=== PATIENT | female | born 1960 | race Caucasian/White ===

== ENCOUNTER → 2017-07-12 | Outpatient (CLI) | payer BC ==
--- NOTE | 2017-07-15 09:06 | MM ---
Reason for exam: screening (asymptomatic). Last mammogram was performed 1 year ago. History: Family history of breast cancer in sister at age 54. U/S Discnt Right Core Biopsy of both breasts, January 12, 2013. Excisional biopsy of the right breast, December 13, 2006. Took hormonal contraceptives for 10 years. Physical Findings: A clinical breast exam by your physician is recommended on an annual basis and results should be correlated with mammographic findings. MG 3D Screening Mammo W/Cad Bilateral CC and MLO view(s) were taken. Prior study comparison: July 24, 2016, bilateral MG screening mammo w CAD. March 09, 2015, bilateral MG screening mammo w CAD. The breast tissue is extremely dense which could obscure a lesion on mammography. There is no discrete abnormality. No significant changes when compared with prior studies. ASSESSMENT: Negative, BI-RAD 1 RECOMMENDATION: Routine screening mammogram of both breasts in 1 year.
== END ==
LOC: RADMAMWWP 15:15
PROVIDERS: ATTEND Obstetrics & Gynecology
DX: Z12.31 Encounter for screening mammogram for malignant neoplasm of breast (principal)
CPT/HCPCS: 77063; G0202

== ENCOUNTER → 2018-08-29 | Outpatient (CLI) | payer OTHER ==
[2018-08-29 12:36] LABS: HCT 48.3 % (34.0-46.0); HGB 15.9 gm/dL (11.4-16.0); MCH 30.9 pg (25.0-35.0); MCV 93.6 fL (80.0-100.0); Mean Platelet Volume 6.3; Platelet Count 304 k/uL (150-450); RBC 5.16 m/uL (3.80-5.40); RDW 13.7 % (11.5-15.5); WBC 10.9 k/uL (3.8-10.6)
[2018-08-29 14:37] LABS: Neutrophils # (M) 3.92 k/uL (1.3-7.7); Neutrophils % (M) 36 %
[2018-08-29 14:38] LABS: Eosinophils # (M) 0.22 k/uL (0-0.7); Monocytes # (M) 0.65 k/uL (0-1.0); Nucleated Red Blood Cells 0 /100 WBC (0-0); Total Cells Counted 100
[2018-08-29 18:07] LABS: Iron Saturation 19.15 (12.00-45.00)
== END | disposition home or self-care (01) ==
LOC: LABWHC1 11:06
PROVIDERS: ATTEND Family Medicine
DX: R71.8 Other abnormality of red blood cells (principal)
CPT/HCPCS: 36415; 82728; 83540; 83550; 85025

== ENCOUNTER → 2018-09-15 | Outpatient (CLI) | payer OTHER ==
--- NOTE | 2018-09-15 08:52 | MM ---
Reason for exam: clinical finding. Last mammogram was performed 1 year and 2 months ago. History: Patient is postmenopausal. Family history of breast cancer in sister at age 54. U/S Discnt Right Core Biopsy of both breasts, January 12, 2013. Excisional biopsy of the right breast, December 13, 2006. Took hormonal contraceptives for 10 years. Physical Findings: Nurse did not find any significant physical abnormalities on exam. MG Diagnostic Mammo w CAD JAM Bilateral CC and MLO view(s) were taken. Prior study comparison: July 12, 2017, bilateral MG 3d screening mammo w/cad. July 24, 2016, bilateral MG screening mammo w CAD. The breast tissue is extremely dense which could obscure a lesion on mammography. No significant new findings when compared with previous films. These results were verbally communicated with the patient and result sheet given to the patient on 09/15/18. ASSESSMENT: Incomplete: need additional imaging evaluation, BI-RAD 0 RECOMMENDATION: Ultrasound of the left breast. (for milky/clear/bloody discharge)
--- NOTE | 2018-09-15 08:55 | USB ---
Reason for exam: additional evaluation requested from abnormal screening. History: Patient is postmenopausal. Family history of breast cancer in sister at age 54. U/S Discnt Right Core Biopsy of both breasts, January 12, 2013. Excisional biopsy of the right breast, December 13, 2006. Took hormonal contraceptives for 10 years. US Breast LT Left complete breast ultrasound includes all four quadrants, the retroareolar region and axilla. Finding demonstrates a 3 x 2 x 4mm oval, cystic, benign lesion at 6 o'clock. No other solid or cystic lesion is seen. These results were verbally communicated with the patient and result sheet given to the patient on 09/15/18. ASSESSMENT: Benign, BI-RAD 2 RECOMMENDATION: Routine screening mammogram of both breasts in 1 year. Manage patient on a clinical basis. Clinical surveillance recommended for left nipple discharge. Suspicious discharge that can be further evaluated includes clear/bloody spontaneous discharge localized to a single pore on the nipple.
== END | disposition home or self-care (01) ==
LOC: RADMAMWWP 07:28
PROVIDERS: ATTEND Family Medicine
DX: N61.1 Abscess of the breast and nipple (principal); N64.59 Other signs and symptoms in breast; D72.820 Lymphocytosis (symptomatic); R92.8 Other abnormal and inconclusive findings on diagnostic imaging of breast
CPT/HCPCS: 36415; 77066

== ENCOUNTER → 2019-08-21 | Outpatient (CLI) | payer OTHER ==
[2019-08-21 09:18] LABS: Basophils % (A) 0 %; Eosinophils # (A) 0.1 k/uL (0-0.7); Eosinophils % (A) 1 %; HCT 46.8 % (34.0-46.0); HGB 15.9 gm/dL (11.4-16.0); Lymphocytes # (A) 6.1 k/uL (1.0-4.8); Lymphocytes % (A) 52 %; MCH 31.7 pg (25.0-35.0); Mean Platelet Volume 6.4; Monocytes # (A) 0.5 k/uL (0-1.0); Monocytes % (A) 4 %; Neutrophils # (A) 4.7 k/uL (1.3-7.7); Neutrophils % (A) 40 %; Platelet Count 324 k/uL (150-450); RBC 5.03 m/uL (3.80-5.40); RDW 13.2 % (11.5-15.5); WBC 11.7 k/uL (3.8-10.6)
[2019-08-21 18:40] LABS: African American GFR (CKD) 95.5 (60.0-200.0); Albumin 4.8 g/dL (3.80-4.90); Albumin/Globulin Ratio 2.29 (1.60-3.17); Anion Gap 8.2 mmol/L (4.00-12.00); Calcium 9.7 mg/dL (8.7-10.3); Carbon Dioxide 25.8 mmol/L (21.6-31.8); Chol/HDL Ratio 3.09; Globulin 2.1 g/dL (1.6-3.3); LDL Cholesterol,Calculated 126.2 mg/dL (0.0-131.0); Non-African American GFR(CKD) 82.4 (60.0-200.0); Potassium 4.1 mmol/L (3.5-5.5); Total Bilirubin 0.5 mg/dL (0.2-1.2); Total Protein 6.9 g/dL (6.2-8.2); VLDL Calculation 15.8 mg/dL (5.00-40.00)
== END | disposition home or self-care (01) ==
LOC: LABWHC1 08:19
PROVIDERS: ATTEND Family Medicine
DX: Z00.00 Encounter for general adult medical examination without abnormal findings (principal)
CPT/HCPCS: 36415; 80053; 80061; 82306; 85025

== ENCOUNTER → 2019-09-22 | Outpatient (CLI) | payer OTHER ==
[2019-09-22 09:00] VITALS: BP 145/77; PULSE 100; RESP 18; TEMP 98.1
--- NOTE | 2019-09-22 09:39 | P.HPOB ---
History of Present Illness H&P Date: 09/22/19 Chief Complaint: The patient is here for her routine gynecologic exam and ma mmogram. This is a 59-year-old with an LMP of 2007. The patient has been amenorrheic since her endometrial ablation in 2007. She is status post tubal ligation. She is here to establish with this office. Her last pelvic exam was about 2 years ago. She does have some hot flashes and night sweats and she has used happy PMS cream for this for a number of years which she states helps with the symptoms. She is otherwise without complaints. Review of Systems The patient's weight has been stable over the last year. She denies respiratory, cardiac, or G.I. problems. 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 She has no other history of STDs. History of Any Multi-Drug Resistant Organisms: None Reported Past Surgical History: Tubal Ligation, Uterine Ablation Additional Past Surgical History / Comment(s): uterine ablation, (R) breast surgery, dental surgery Past Psychological History: No Psychological Hx Reported Smoking Status: Current every day smoker (One pack per day) Past Alcohol Use History: Occasional (Up to 6 per month.) Past Drug Use History: None Reported Additional History: She is and is not seeing anybody at this time. 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 - Past Family History Father Family Medical History: Cancer, Coronary Artery Disease (CAD) Additional Family Medical History / Comment(s): Neck cancer. Mother Family Medical History: CVA/TIA Medications and Allergies Home Medications Medication Instructions Recorded Confirmed Type Happy Pms Cream 1 applic TOPICAL DAILY 06/19/16 09/22/19 History Cholecalciferol [Vitamin D3 (25 1,000 unit PO DAILY 09/22/19 09/22/19 History Mcg = 1000 Iu)] Multivit/Folic Acid/Vit K1 1 each PO DAILY 09/22/19 09/22/19 History [One-A-Day Women's 50 Plus Tab] Allergies Allergy/AdvReac Type Severity Reaction Status Date / Time tetracycline Allergy Unknown Verified 09/22/19 09:00 Exam Vital Signs Temp Pulse Resp BP Pulse Ox 09/22/19 08:57 98.1 F 100 18 145/77 96 Intake and Output 09/21/19 09/22/19 09/22/19 22:59 06:59 14:59 Other: Weight 64.41 kg Height 5 feet 7 inches, weight 142 pounds, BMI 22.2. This is a well-developed well-nourished white female who is alert and oriented times 3 in no acute distress. HEENT: Within normal limits. NECK: Supple without mass or thyromegaly. CHEST AND LUNGS: Clear to auscultation. HEART: Regular rate and rhythm. BREASTS: Are without mass or discharge. The left nipple has central inversion and the patient states this has been this way for many years. The right nipple is not inverted. AXILLARY EXAM: Negative for adenopathy. BACK: Negative for CVA tenderness. ABDOMEN: Soft, nontender, without palpable masses. PELVIC EXAM: Normal external genitalia with mild atrophy. Cervix and vagina appear normal with mild atrophy. There is no unusual discharge. There is no evidence of prolapse. The uterus is midposition, nongravid size and nontender. There are no palpable adnexal masses or tenderness. RECTAL EXAM: Rectovaginal exam is negative for mass or tenderness and is negative for occult blood. EXTREMITIES: Nontender. IMPRESSION: 1. 59-year-old menopausal female with normal gynecologic exam. 2. Mildly elevated blood pressure. PLAN: 1. Pap smear was performed. 2. Self breast awareness was discussed with the patient. 3. Screening mammogram will be done today. 4. We have discussed her elevated blood pressure. I have recommended that she check her own blood pressure on a regular basis. She is to follow up with her PCP for blood pressure elevations. 5. Osteoporosis prevention was discussed. I have stressed the importance of adequate calcium, vitamin D and regular exercise. Recommended amounts of calciu m and vitamin D were also discussed. We will plan on doing a bone density test in 1 year. 6. We discussed screening colonoscopy. She states she is planning to do cologuard testing through her PCP as an alternative to the colonoscopy. 7. STD prevention was discussed with the patient. I have stressed the importance of limiting sexual partners and I have recommended that she use condoms if she is sexually active. 8. She was advised to return in one year for her annual well woman exam.
--- NOTE | 2019-09-23 08:14 | MM ---
Reason for exam: screening (asymptomatic). Last mammogram was performed 1 year ago. History: Patient is postmenopausal. Family history of breast cancer in sister at age 54. U/S Discnt Right Core Biopsy of both breasts, January 12, 2013. Excisional biopsy of the right breast, December 13, 2006. Took hormonal contraceptives for 10 years beginning at age 18. Physical Findings: A clinical breast exam by your physician is recommended on an annual basis and results should be correlated with mammographic findings. MG Screening Mammo w CAD Bilateral CC and MLO view(s) were taken. Prior study comparison: September 15, 2018, bilateral MG diagnostic mammo w CAD JAM. July 12, 2017, bilateral MG 3d screening mammo w/cad. The breast tissue is extremely dense which could obscure a lesion on mammography. Stable benign calcifications. There is no discrete abnormality. No significant changes when compared with prior studies. ASSESSMENT: Benign, BI-RAD 2 RECOMMENDATION: Routine screening mammogram of both breasts in 1 year.
== END | disposition home or self-care (01) ==
LOC: WWCWWP 08:47
PROVIDERS: ATTEND Obstetrics & Gynecology
DX: Z12.31 Encounter for screening mammogram for malignant neoplasm of breast (principal)
CPT/HCPCS: 77067

== ENCOUNTER → 2020-11-14 | Outpatient (CLI) | payer OTHER ==
[2020-11-14 14:53] LABS: HCT 49.2 % (37.2-46.3); HGB 16.2 g/dL (12.0-15.0); MCH 30.5 pg (27.0-32.0); MCHC 32.9 g/dL (32.0-37.0); MCV 92.7 fL (80.0-97.0); Platelet Count 316 X 10*3/uL (140-440); RBC 5.31 X 10*6/uL (4.10-5.20); RDW 13.5 % (11.5-14.5); WBC 12.73 X 10*3/uL (4.50-10.00)
[2020-11-14 16:04] LABS: Basophils # (M) 0 X 10*3/uL (0.00-0.10); Eosinophils # (M) 0.13 X 10*3/uL (0.04-0.35); Monocytes # (M) 0.64 X 10*3/uL (0.20-1.00); Neutrophils # (M) 2.16 X 10*3/uL (2.00-8.90); Neutrophils % (M) 17 %; Smudge Cells PRESENT
[2020-11-14 16:07] LABS: African American GFR (CKD) 94.2 (60.0-200.0); Albumin 4.9 g/dL (3.80-4.90); Albumin/Globulin Ratio 2.23 (1.60-3.17); Anion Gap 10.1 mmol/L (4.00-12.00); BUN/Creat Ratio 12.5 Ratio (12.00-20.00); Calcium 9.8 mg/dL (8.7-10.3); Carbon Dioxide 23.9 mmol/L (21.6-31.8); Chol/HDL Ratio 3.98; Globulin 2.2 g/dL (1.6-3.3); LDL Cholesterol,Calculated 148.4 mg/dL (0.0-131.0); Non-African American GFR(CKD) 81.3 (60.0-200.0); Potassium 4.2 mmol/L (3.5-5.5); Total Bilirubin 0.6 mg/dL (0.2-1.2); Total Protein 7.1 g/dL (6.2-8.2); VLDL Calculation 21.6 mg/dL (5.00-40.00)
== END | disposition home or self-care (01) ==
LOC: LABWHC1 08:17
PROVIDERS: ATTEND Family Medicine
DX: Z00.00 Encounter for general adult medical examination without abnormal findings (principal); Z12.11 Encounter for screening for malignant neoplasm of colon; J44.9 Chronic obstructive pulmonary disease, unspecified; R71.8 Other abnormality of red blood cells
CPT/HCPCS: 36415; 80053; 80061; 84443; 85025

== ENCOUNTER → 2020-12-13 | Outpatient (CLI) | payer OTHER ==
[2020-12-13 14:16] VITALS: BP 132/79; PULSE 78; RESP 18; TEMP 97.9
--- NOTE | 2020-12-13 14:51 | P.HPOB ---
History of Present Illness H&P Date: 12/13/20 Chief Complaint: The patient is here for her routine gynecologic exam and ma mmogram. This is a 60-year-old with an LMP of 2007. The patient is without gynecologic complaints and denies any postmenopausal bleeding. Review of Systems The patient has lost 9 pounds over the last year. She denies respiratory, cardiac, or G.I. problems. 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 She has no other history of STDs. History of Any Multi-Drug Resistant Organisms: None Reported Past Surgical History: Tubal Ligation, Uterine Ablation Additional Past Surgical History / Comment(s): uterine ablation 2007, (R) breast surgery, dental surgery Past Psychological History: No Psychological Hx Reported Smoking Status: Current every day smoker (1 pack per day) Past Alcohol Use History: Rare Past Drug Use History: None Reported Additional History: She is . 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 - Past Family History Father Family Medical History: Cancer, Coronary Artery Disease (CAD) Additional Family Medical History / Comment(s): Neck cancer. Mother Family Medical History: CVA/TIA Medications and Allergies Home Medications Medication Instructions Recorded Confirmed Type Happy Pms Cream 1 applic TOPICAL DAILY 06/19/16 12/13/20 History Cholecalciferol [Vitamin D3 (25 1,000 unit PO DAILY 09/22/19 12/13/20 History Mcg = 1000 Iu)] Multivit/Folic Acid/Vit K1 1 each PO DAILY 09/22/19 12/13/20 History [One-A-Day Women's 50 Plus Tab] Cetirizine HCl [Zyrtec] 5 mg PO DAILY 12/13/20 12/13/20 History Allergies Allergy/AdvReac Type Severity Reaction Status Date / Time tetracycline Allergy Unknown Verified 12/13/20 14:11 Exam Vital Signs Temp Pulse Resp BP Pulse Ox 12/13/20 14:12 97.9 F 78 18 132/79 97 Intake and Output 12/12/20 12/13/20 12/13/20 22:59 06:59 14:59 Other: Weight 60.328 kg Height 5 feet 6 inches, weight 133 pounds, BMI 21.5. This is a well-developed well-nourished white female who is alert and oriented times 3 in no acute distress. HEENT: Within normal limits. NECK: Supple without mass or thyromegaly. CHEST AND LUNGS: Clear to auscultation. HEART: Regular rate and rhythm. BREASTS: Are without mass or discharge. There is left breast nipple inversion which the patient states she has had this "forever". She states she can express a small amount of nonbloody fluid from this side and this is also been for many years. She denies any spontaneous nipple discharge. AXILLARY EXAM: Negative for adenopathy. BACK: Negative for CVA tenderness. ABDOMEN: Soft, nontender, without palpable masses. PELVIC EXAM: Normal external genitalia with mild atrophy. Cervix and vagina appear normal with mild atrophy. There is no unusual discharge. There is no evidence of prolapse. The uterus is midposition, nongravid size and nontender. There are no palpable adnexal masses or tenderness. RECTAL EXAM: Rectovaginal exam is negative for mass or tenderness and is negative for occult blood. EXTREMITIES: Nontender. IMPRESSION: 1. 60-year-old menopausal female with normal gynecologic exam. 2. Smoker PLAN: 1. Pap smear was deferred since she had a normal one on 09/22/2019. 2. Self breast awareness was discussed with the patient. 3. Screening mammogram will be done today. 4. Osteoporosis prevention was discussed. I have stressed the importance of adequate calcium, vitamin D and regular exercise. Recommended amounts of calcium and vitamin D were also discussed. 5. I have strongly recommended that she quit smoking. She understands that there are many reasons why it is important to quit smoking. She states she has never been able to quit with any medical assistance and she will do it on her own when she is ready. 6. I have recommended colorectal cancer screening. We have discussed c olonoscopies and other options such as Cologuard. She wants to avoid having a colonoscopy and plans on doing the Cologuard through her PCP. 7. She was advised to return in one year for her annual well woman exam.
--- NOTE | 2020-12-15 14:17 | MM ---
Reason for exam: screening (asymptomatic). Last mammogram was performed 1 year and 3 months ago. History: Patient is postmenopausal. Family history of breast cancer in sister at age 54. U/S Discnt Right Core Biopsy of both breasts, January 12, 2013. Excisional biopsy of the right breast, December 13, 2006. Took hormonal contraceptives for 10 years beginning at age 18. Physical Findings: A clinical breast exam by your physician is recommended on an annual basis and results should be correlated with mammographic findings. MG Screening Mammo w CAD Bilateral CC and MLO view(s) were taken. Prior study comparison: September 22, 2019, bilateral MG screening mammo w CAD. September 15, 2018, bilateral MG diagnostic mammo w CAD JAM. July 12, 2017, bilateral MG 3d screening mammo w/cad. The breast tissue is heterogeneously dense. This may lower the sensitivity of mammography. Progressive benign oil cyst calcification on the left. No significant changes when compared with prior studies. ASSESSMENT: Benign, BI-RAD 2 RECOMMENDATION: Routine screening mammogram of both breasts in 1 year.
== END ==
LOC: WWCWWP 14:02
PROVIDERS: ATTEND Obstetrics & Gynecology
DX: Z01.419 Encounter for gynecological examination (general) (routine) without abnormal findings (principal); Z78.0 Asymptomatic menopausal state; F17.210 Nicotine dependence, cigarettes, uncomplicated; Z88.1 Allergy status to other antibiotic agents
CPT/HCPCS: 77067

== ENCOUNTER → 2021-02-21 | Outpatient (CLI) | payer OTHER ==
[2021-02-21 11:31] VITALS: BP 114/74; PULSE 88; RESP 18; TEMP 97.9
--- NOTE | 2021-02-21 12:44 | P.PN ---
Progress Note - Text Progress Note Date: 02/21/21 Chief Complaint: Period like bleeding for 4 days starting on 02/10/2021. HPI: This is a 60-year-old with an LMP of 2007. The patient is status post endometrial ablation in 2007 for abnormal bleeding. She has been amenorrheic since then. She denies any specific time when she had menopausal symptoms such as hot flashes that could indicate when she went through menopausal change. She states that on 02/09/2021, she felt quite fatigued in the evening and went to bed. The following morning she had bled from the vagina which was like a heavy period. The following day she had period like bleeding as well as various other symptoms including nausea, hot and cold flashes, low back discomfort, and some pelvic pressure. By the fourth day, the bleeding stopped and the symptoms resolved. She states the bleeding felt a lot like a period. She has been using Happy PMS cream as directed for about 15 years. ROS: She denies respiratory, cardiac, or GI problems. PE: Blood pressure: 114/74, Height: 66 inches, Weight: 141 pounds, Temperature: 97.9, Pulse: 88. Pulse oximeter 96%. This is a well developed, well nourished, White female who is alert and orientedx3, in no acute distress. Abdomen: Soft, nontender without palpable masses. Pelvic exam: Normal external genitalia. Cervix and vagina appear normal with mild atrophy. There is no unusual discharge or blood in the vagina. Bimanual exam: Uterus is midposition, nongravid size, and nontender. There are no palpable adnexal masses or tenderness. Procedure: We have discussed her situation and I have recommended endometrial biopsy. I discussed the procedure with the patient. We also discussed possible risks and complications including bleeding, infection, uterine perforation, and damage to surrounding structures. All of her questions were answered. The patient was placed in the lithotomy position and a speculum was inserted into the vagina. The cervix and vagina were prepped with Betadine solution 3. An Allis clamp was used to grasp the anterior lip of the cervix. The 3 mm endometrial biopsy instrument could not go beyond the endocervix. The Allis clamp was also placed on the posterior cervix and the endometrial biopsy instrument still could not go beyond the endocervix. After several attempts, the procedure was aborted. The patient tolerated the procedure well. Estimated blood loss was less than 1 mL. Impression: 1. 60-year-old menopausal female who is status post endometrial ablation, with a menstrual-like postmenopausal bleed that lasted 4 days starting on 02/10/2021. The bleeding has stopped. 2. Failed endometrial biopsy attempt today secondary to cervical stenosis and possible endometrial scarring following the ablation. 3. The patient has been using a progesterone topical cream for 15 years. Plan: 1. We have discussed options including pelvic ultrasound and D&C. we will start by having her get a pelvic ultrasound to visualize the endometrium and endometrial thickness. If there is evidence of endometrial thickening or she is having recurrent bleeding, she will be referred for possible D&C and hysteroscopy. The pelvic ultrasound was scheduled for 03/07/21. 2. I have recommended that the patient discontinue the happy PMS progesterone cream. She states she will stop this. 3. The patient was instructed to call she's having problems including recurrent bleeding or unusual pain. Time spent with the patient: 35 minutes
== END | disposition home or self-care (01) ==
LOC: WWCWWP 11:18
PROVIDERS: ATTEND Obstetrics & Gynecology
DX: Z53.9 Procedure and treatment not carried out, unspecified reason (principal)

== ENCOUNTER → 2021-03-07 | Outpatient (CLI) | payer OTHER ==
--- NOTE | 2021-03-08 16:01 | US ---
EXAMINATION TYPE: US pelvis complete transvag DATE OF EXAM: 03/07/2021 COMPARISON: NONE CLINICAL HISTORY: N95.0 Postmenopausal bleeding. Patient stated had one episode vaginal bleeding sinc e ablation; endometrial ablation 2007; TECHNIQUE: Transvaginal (TV) and Transabdominal (TA) . Transabdominal sonographic images of the pel vis were acquired. Transvaginal sonographic images were medically necessary to better assess the fol lowing anatomy: endometrial area Date of LMP: 2007 EXAM MEASUREMENTS: Uterus: 5.5 x 3.7 x 2.6 cm Endometrial Stripe: post ablation with mixed fluid area seen in upper endometrial location. Right Ovary: 1.6 x 1.4 x 1.6 cm Left Ovary: 1.3 x 1.0 x 1.4 cm 1. Uterus: Anteverted on TA US 2. Endometrium: mixed fluid area seen in upper endometrial location = 1.4 x 0.7 x 0.3cm. 3. Right Ovary: small follicle seen = 0.6 x 0.4 x 0.5cm 4. Left Ovary: small follicles seen 5. Bilateral Adnexa: wnl 6. Posterior cul-de-sac: wnl IMPRESSION: 1. Small amount of fluid may be within the endometrial. This is not simple fluid. Debris and hemorrha ge could be considered. Consider MRI.
== END | disposition home or self-care (01) ==
LOC: RADUSWWP 15:33
PROVIDERS: ATTEND Obstetrics & Gynecology
DX: N83.01 Follicular cyst of right ovary (principal); N83.02 Follicular cyst of left ovary; N95.0 Postmenopausal bleeding
CPT/HCPCS: 76830; 76856

== ENCOUNTER → 2021-03-29 | Outpatient (CLI) | payer OTHER ==
[2021-03-29 12:27] LABS: Basophils # (A) 0.1 k/uL (0-0.2); Basophils % (A) 1 %; Eosinophils # (A) 0.1 k/uL (0-0.7); Eosinophils % (A) 1 %; HCT 49.2 % (34.0-46.0); HGB 16.8 gm/dL (11.4-16.0); Lymphocytes # (A) 5.7 k/uL (1.0-4.8); Lymphocytes % (A) 54 %; MCH 32.4 pg (25.0-35.0); MCHC 34.2 g/dL (31.0-37.0); MCV 94.8 fL (80.0-100.0); Mean Platelet Volume 6.7; Monocytes # (A) 0.5 k/uL (0-1.0); Monocytes % (A) 5 %; Neutrophils # (A) 4.1 k/uL (1.3-7.7); Neutrophils % (A) 39 %; Platelet Count 313 k/uL (150-450); RBC 5.19 m/uL (3.80-5.40); WBC 10.6 k/uL (3.8-10.6)
== END | disposition home or self-care (01) ==
LOC: LABPAT 11:14
PROVIDERS: ATTEND Obstetrics & Gynecology
DX: Z01.810 Encounter for preprocedural cardiovascular examination (principal); Z01.812 Encounter for preprocedural laboratory examination
CPT/HCPCS: 36415; 85025; 93005

== ENCOUNTER 2021-04-18 06:16 | Day surgery (SDC) | payer OTHER ==
[2021-04-13 15:41] VITALS: BMI 22.4
--- NOTE | 2021-04-17 20:18 | P.HPOB ---
History of Present Illness H&P Date: 04/17/21 Chief Complaint: Postmenopausal bleeding This is a 60 y.o. female, 3, para 3, who presents for dilatation and curettage with hysteroscopy due to postmenopausal bleeding and endometrial thickening on ultrasound. She had an endometrial ablation in 2006 and stopped having menses. She has been using Happy PMS cream daily for some time. She had a large gush of blood about a month ago that felt like a period and lasted for 3 days. She had no further bleeding but does feel a pressure like another period will start. Pelvic ultrasound showed uterus measuring 5.5 x 3.7 x 2.6 cm, endometrium with mixed fluid area in upper endometrium measuring 1.4 x 0.7 x 0.3 cm. Her right ovary had a small follicle. She has also had some milky nipple discharge. OB Hx: History of 3 vaginal deliveries. 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 Not currently sexually active. Had tubal ligation. Social Hx: . Works in [employer]. Review of Systems Constitutional: Reports night sweats, Denies chills, Denies fever Eyes: denies blurred vision, denies pain Ears, nose, mouth and throat: Denies headache, Denies sore throat Cardiovascular: Denies chest pain, Denies shortness of breath Respiratory: Denies cough Gastrointestinal: Denies abdominal pain, Denies diarrhea, Denies nausea, Denies vomiting Genitourinary: Reports abnormal vaginal bleeding, Reports pelvic pain (Pressure) Menstruation: Reports postmenopausal Musculoskeletal: Denies myalgias Integumentary: Denies pruritus, Denies rash Neurological: Denies numbness, Denies weakness Past Medical History Past Medical History: No Reported History Additional Past Medical History / Comment(s): POST MENOPAUSAL BLEEDING History of Any Multi-Drug Resistant Organisms: None Reported Past Surgical History: Breast Surgery, Tubal Ligation, Uterine Ablation Additional Past Surgical History / Comment(s): uterine ablation 2007, (R) breast surgery, dental surgery, Past Anesthesia/Blood Transfusion Reactions: No Reported Reaction Past Psychological History: No Psychological Hx Reported Smoking Status: Current every day smoker Past Alcohol Use History: Occasional Past Drug Use History: None Reported - Past Family History Father Family Medical History: Cancer, Coronary Artery Disease (CAD) Additional Family Medical History / Comment(s): Neck cancer. Mother Family Medical History: CVA/TIA Medications and Allergies Home Medications Medication Instructions Recorded Confirmed Type Happy Pms Cream 1 applic TOPICAL DAILY 06/19/16 04/13/21 History Cholecalciferol [Vitamin D3 (25 1,000 unit PO DAILY 09/22/19 04/13/21 History Mcg = 1000 Iu)] Multivit/Folic Acid/Vit K1 1 each PO DAILY 09/22/19 04/13/21 History [One-A-Day Women's 50 Plus Tab] Cetirizine HCl [Zyrtec] 5 mg PO DAILY 12/13/20 04/13/21 History Ibuprofen [Advil] 200 mg PO Q8HR PRN 04/13/21 04/13/21 History Allergies Allergy/AdvReac Type Severity Reaction Status Date / Time tetracycline Allergy Unknown Verified 04/13/21 15:16 Childhood Exam Osteopathic Statement: *. No significant issues noted on an osteopathic structural exam other than those noted in the History and Physical/Consult. HEENT: within normal limits Heart: regular rate and rhythm Lungs: clear to auscultation Abdomen: soft, non-tender Pelvic: uterus retroverted, non-tender, with no adnexal masses or tenderness Extremities: neg. Jacob's Assessment and Plan (1) Postmenopausal bleeding Status: Acute Code(s): N95.0 - POSTMENOPAUSAL BLEEDING SNOMED Code(s): 81527972 (2) Endometrial thickening on ultrasound Status: Acute Code(s): R93.89 - ABNORMAL FINDINGS ON DX IMAGING OF OTH BODY STRUCTURES SNOMED Code(s): 299739996 Plan: Proceed with dilatation and curettage with hysteroscopy. Patient is aware of risk of uterine perforation or the possibility that I may not be able to visualize the endometrium due to her previous endometrial ablation.
[~2021-04-18 06:16] MED LIST: DEXAMETHASONE SOD PHOSPHATE 4 MG/ML 1 ML VIAL IV ONE; LACTATED RINGERS 1,000 ML IV SCH; LIDOCAINE 1% (10MG/ML) FOR IV START INTRADERMA PRN; ONDANSETRON 4 MG/2 ML VIAL IVP ONE; Pre Op ABX Message 1 EACH MISC MISCELLANE ONE; SCOPOLAMINE 1.5MG/72HR PATCH TRANSDERM ONE
[2021-04-18] MEDS ORDERED: HYDROmorphone 0.5 MG/0.5 ML SYRINGE IVP PRN (07:00)
[2021-04-18] MEDS ORDERED: LIDOCAINE 1% INJ 10MG/ML (20 ML MDV) ONE (07:28)
[2021-04-18] MEDS ORDERED: PROPOFOL 10 MG/ML 20 ML VIAL IV ONE (07:28)
[2021-04-18] MEDS ORDERED: KETOROLAC 15 MG/ML 1 ML VIAL ONE (07:28)
[2021-04-18] MEDS ORDERED: fentaNYL (PF) 50 MCG/ML 2 ML AMP ONE (07:28)
[2021-04-18] MEDS ORDERED: MIDAZOLAM 2 MG/2 ML VIAL ONE (07:28)
--- NOTE | 2021-04-18 08:05 | P.OP ---
Date of Procedure: 04/18/21 Preoperative Diagnosis: Postmenopausal bleeding Endometrial thickening Postoperative Diagnosis: Same Procedure(s) Performed: Dilation and curettage with hysteroscopy Anesthesia: RICARDO Surgeon: Carolina Siegel Estimated Blood Loss (ml): 5 Pathology: other (Endometrial curettings) Condition: stable Disposition: same day Indications for Procedure: This is a 60 y.o. female, 3, para 3, who presents for dilatation and curettage with hysteroscopy due to postmenopausal bleeding and endometrial thickening on ultrasound. She had an endometrial ablation in 2006 and stopped having menses. She has been using Happy PMS cream daily for some time. She had a large gush of blood about a month ago that felt like a period and lasted for 3 days. She had no further bleeding but does feel a pressure like another period will start. Pelvic ultrasound showed uterus measuring 5.5 x 3.7 x 2.6 cm, endometrium with mixed fluid area in upper endometrium measuring 1.4 x 0.7 x 0.3 cm. Her right ovary had a small follicle. She has also had some milky nipple discharge. Operative Findings: Uterus is retroverted, sounded to 6 cm. Very stenotic cervical os was noted. Very atrophic endometrial appearance is noted with very scant endometrial curettings. No adnexal masses are palpated. She did have grade 1-2 uterine prolapse. Description of Procedure: The patient is taken to the operating room she is placed in the dorsal lithotomy position. She is prepped and draped in the normal sterile fashion. Her bladder is drained with a catheter and then removed. Examination is performed under anesthesia. Uterus sounded be retroverted, with no adnexal masses palpated. There is grade 1-2 uterine prolapse noted. Next a weighted speculum was placed in the patient's vagina and a right angle retractor was used to visualize ovaries. The anterior lip of the cervix is grasped with a single-tooth tenaculum. Next the cervix is gently dilated with a hemostat followed by a small Mckeon dilator. Once the cervical os is dilated, a sound was placed in the uterus is sounded to 6 cm. Cervix and uterus is gently dilated with Mckeon dilators until a hysteroscope could be passed. Hysteroscopy was performed using normal saline. Endometrial scarring was noted and very atrophic endometrial pattern is noted. Neither tubal ostia is visualized. Next pictures are taken. Hysteroscope was withdrawn. Cervix is gently dilated further and then a small curet was used to perform uterine curettings. Very scant and atrial cuttings are obtained and relatively smooth contour was noted. Next the single-tooth tenaculum is removed and no active bleeding is noted. The specimen is removed from the field. All instrument are removed from the vagina. All sponge counts are correct. The patient is taken to recovery room in stable condition.
[2021-04-18 08:24] VITALS: TEMP 96.8
[2021-04-18 08:48] VITALS: RESP 16
[2021-04-18 09:10] VITALS: BP 111/61; PULSE 67
== END 2021-04-18 09:34 | disposition home or self-care (01) ==
LOC: OR 06:16
PROVIDERS: ATTEND Obstetrics & Gynecology
DX: N95.0 Postmenopausal bleeding (principal); R93.89 Abnormal findings on diagnostic imaging of other specified body structures; F17.200 Nicotine dependence, unspecified, uncomplicated; Z82.49 Family history of ischemic heart disease and other diseases of the circulatory system; Z80.9 Family history of malignant neoplasm, unspecified; Z88.1 Allergy status to other antibiotic agents
CPT/HCPCS: 58563; 88305; J2250; J1100; J2405; J2001; J3010; J1885; J2704

== ENCOUNTER → 2021-08-21 | Outpatient (CLI) | payer OTHER ==
--- NOTE | 2021-08-21 11:17 | USB ---
Reason for exam: clinical finding. History: Patient is postmenopausal. Family history of breast cancer in sister at age 54. U/S Discnt Right Core Biopsy of both breasts, January 12, 2013. Excisional biopsy of the right breast, December 13, 2006. Took hormonal contraceptives for 10 years beginning at age 18. Indicated problem(s): non-bloody discharge in the left breast. Physical Findings: Nurse Summary: Patient complains of left breast white/yellow/bloody nipple discharge one time x 1 month ago, left nipple inverted (always), retroareolar nodularity (nurse mj). US Breast LT Left complete breast ultrasound includes all four quadrants, the retroareolar region and axilla. Finding demonstrates a 4 x 3 x 4mm round, cystic lesion at 3 o'clock, benign thin walled cyst, a 6 x 3 x 5mm oval, cystic lesion at 9 o'clock, benign thin walled cyst and chain of lymph nodes at the axilla, benign. These results were verbally communicated with the patient and result sheet given to the patient on 08/21/21. ASSESSMENT: Benign, BI-RAD 2 RECOMMENDATION: Return to routine screening mammogram schedule for both breasts. Back on schedule for November 2021. Manage patient on a clinical basis.
== END | disposition home or self-care (01) ==
LOC: RADUSWWP 09:28
PROVIDERS: ATTEND Student in an Organized Health Care Education/Training Program
DX: N64.52 Nipple discharge (principal)